=== PATIENT | female | born 1990 | race Caucasian/White ===

== ENCOUNTER 2016-07-05 15:56 | Emergency (ER) | payer BC ==
[~2016-07-05] VITALS: Ht 170.2 cm; Wt 72.6 kg
[2016-07-05 16:31] VITALS: BP 118/58; PULSE 90; RESP 18; TEMP 97.9; O2SAT 99
--- NOTE | 2016-07-05 17:40 | NUR ---
Patient to ER bed h1 to gown for evaluation. Side rails up. assumed care of the pt
--- NOTE | 2016-07-05 17:45 | NUR ---
Patient presents to the emergency deparment with complaints of bug bite to L knee since sunday that has been getting bigger and worse. itching noted with pain when walking. 10/30 pain.
--- NOTE | 2016-07-05 17:45 | NUR ---
ANTELMO Grimaldo at bedside examining patient.
[2016-07-05] MEDS ORDERED: LIDOCAINE 2%, 20 ML MDV INJ ONE (18:00)
[2016-07-05] MEDS ORDERED: IBUPROFEN 800 MG TABLET PO ONE (18:00)
[2016-07-05] MEDS ORDERED: cefTRIAXone 1 GM VIAL IM ONE (18:00)
--- NOTE | 2016-07-05 18:16 | NUR ---
medicated pt per MD order, lab drawing blood
[2016-07-05 18:24] LABS: BASOPHILS # (AUTO) 0.1 K/uL (0.0-0.2); EOSINOPHILS # (AUTO) 0.1 K/uL (0.0-0.4); EOSINOPHILS % (AUTO) 1.8 % (0.0-4.0); HEMOGLOBIN 12.9 g/dL (12.0-16.0); LYMPHOCYTES # (AUTO) 2.1 K/uL (1.0-5.5); MEAN CORPUSCULAR HEMOGLOBIN 29 pg (27-31); MEAN CORPUSCULAR HGB CONC 34 % (32-36); MEAN CORPUSCULAR VOLUME 85 fL (79.0-98.0); MONOCYTES # (AUTO) 0.6 K/uL (0.0-1.0); MONOCYTES % (AUTO) 7.1 % (1.7-9.3); NEUTROPHILS # (AUTO) 5.4 K/uL (1.8-7.7); NEUTROPHILS % (AUTO) 65.1 % (40.0-70.0); PLATELET COUNT (AUTO) 333 K/uL (130-430); RED BLOOD CELL COUNT(AUTO) 4.47 MIL/uL (4.2-6.2); RED CELL DISTRIBUTION WIDTH 12.2 % (9.0-15.0); WHITE BLOOD COUNT (AUTO) 8.3 K/uL (4.8-10.8)
[2016-07-05 18:36] LABS: CALCIUM 9.4 mg/dL (8.4-11.0); CREATININE 0.6 mg/dL (0.55-1.30); POTASSIUM 4.5 mmol/L (3.5-5.1)
[2016-07-05 18:40] LABS: ALBUMIN 4.4 g/dL (3.4-4.8); TOTAL BILIRUBIN 0.4 mg/dL (0.0-1.0); TOTAL PROTEIN, SERUM 8.4 g/dL (6.4-8.3)
--- NOTE | 2016-07-05 19:08 | NUR ---
Patient given written and verbal discharge instructions and verbalizes understanding. ER MD discussed with patient the results and treatment provided. Patient in stable condition. ID arm band removed. Rx of DOXYCYCLINE, MUPIROCIN, MOTRIN given. Patient educated on pain management and to follow up with PMD. Pain Scale 0/10. Opportunity for questions provided and answered.
[2016-07-05 19:11] VITALS: BP 115/61; PULSE 84; RESP 18; TEMP 97.9; O2SAT 99
== END 2016-07-05 19:11 | disposition home or self-care (01) ==
LOC: SED 15:56
DX: S80.262A Insect bite (nonvenomous), left knee, initial encounter (principal); W57.XXXA Bitten or stung by nonvenomous insect and other nonvenomous arthropods, initial encounter; Y93.89 Activity, other specified; Y92.89 Other specified places as the place of occurrence of the external cause; Y99.8 Other external cause status
CPT/HCPCS: 36415; 80053; 81025; 85025; 87040; 96372; 99284; J0696; J2001